=== PATIENT | female | born 1970 | race Caucasian/White ===

== ENCOUNTER 2023-02-08 08:13 | Emergency (ER) | payer MEDICARE, OTHER, MEDICAID, SELFPAY ==
--- NOTE | 2023-02-08 08:19 | ED_ITS ---
HPI - Abdominal Pain General: Chief Complaint: Abdominal Pain Stated Complaint: Abd Pain Time Seen by Provider: 02/08/23 08:14 History of Present Illness: Ms. Evans is a 52-year-old lady with significant past medical history of sarcoidosis presenting to the emergency department for abdominal pain. She notes symptoms over the past few months which has generally been intermittent and mild to moderate however is now been more severe in the moderate to severe range. She notes primarily left upper quadrant pain without significant radiation. She has nausea with the pain but no other GI symptoms. She is postmenopausal. She does report a history of sarcoidosis and took herself off medications due to adverse side effects from steroids and Imuran. No other specific changes in health, exacerbating, or alleviating factors identified. Unfortunately the patient has limited options with regards to analgesia. She reports a strong family history and personal history now of some degree of kidney dysfunction. She also reports fatty liver. She tries to avoid NSAIDs and Tylenol. She reports significant adverse effects of oversedation and prolonged sedated side effects of opioids. Onset (ago): month(s) Pain Consistency: intermittent Location: LUQ Severity: moderate Radiation: none Migration to: no migration Exacerbating factors: other (Palpation) Relieving factors: nothing Associated Symptoms: Reports nausea (When pain is bad) Review of Systems General: Reports: 10 or more systems reviewed and unremarkable except in HPI and below GI: Reports: nausea (When pain is bad) PFSH ED PFSH: Medical History Family history of kidney disease Sarcoidosis Social History Smoking and tobacco status: former smoker Physical Exam Const: COMMON NORMALS: alert GENERAL APPEARANCE: cooperative and well developed HENMT: COMMON NORMALS: normocephalic and atraumatic HEAD & SCALP: normocephalic and atraumatic Eye: COMMON NORMALS: conjunctivae normal CONJUNCTIVA: Yes conjunctivae normal SCLERA: sclerae normal Neck/C-Spine: COMMON NORMALS: supple GENERAL: Yes trachea midline Resp: COMMON NORMALS: clear to auscultation bilaterally EFFORT & INSPECTION: Yes able to speak in complete sentences AUSCULTATION: clear to auscultation bilaterally Cardio: COMMON NORMALS: regular rate and regular rhythm RATE: regular rate RHYTHM: regular rhythm GI: COMMON NORMALS: Soft to palpation PALPATION: Yes Soft to palpation, Yes Tenderness to palpation present (GI) Details: LUQ, No Guarding due to palpation present (GI) and No Rigid due to palpation Extremity: GENERAL: Yes normal exam except as noted and No edema Neuro: COMMON NORMALS: moves all extremities SENSORIUM/ORIENTATION: Yes alert and No Orientation impaired Psych: COMMON NORMALS: mental status grossly normal and Normal thought process present THOUGHT PROCESS: Normal thought process present Course Vital Signs: Vital signs: Vital Signs Temperature 98.2 F 02/08/23 08:37 Pulse Rate 72 02/08/23 08:37 Respiratory Rate 18 02/08/23 08:40 Blood Pressure 140/86 02/08/23 09:25 Pulse Oximetry 98 02/08/23 08:40 Oxygen Delivery Me thod Room Air 02/08/23 08:40 MDM - Abdominal Pain Medical Decision Making 52-year-old lady presenting to the emergency department for abdominal pain. Exam as above. She is nontoxic. She is abdominal tenderness without evidence of acute surgical abdomen. Labs notable for mild leukopenia, normal hemoglobin and platelet count. Metabolic panel without significant derangement. Negative hCG. No UTI. Mild evidence of dehydration CTA demonstrates hepatomegaly and splenomegaly, uterus appears bulky possible fibrosis, multiple nodules consistent with sarcoidosis. Incidental findings d iscussed with patient. Patient treated with GI cocktail with perhaps minimal relief. Exact etiology of patient's symptoms is unclear however does not appear to need hospitalization at this time. The results of ED evaluation were discussed with the patient including prescriptions and/or symptomatic cares (if applicable) including appropriate and responsible use, followup plan, and return precautions. The patient verbalized understanding and felt safe for discharge. Medical Records I reviewed the patient's medical records. Lab Data I reviewed the patient's lab results. 02/08/23 08:30 02/08/23 08:30 Labs/Radiology: Radiology Impressions Abdomen/Pelvis CT 02/08/23 09:04 IMPRESSION: 1. Mild hepatomegaly and splenomegaly. 2. No hydronephrosis in either kidney. Normal renal parenchymal enhancement. 3. Bulky uterus with bulky uterine mass most likely fibrois but indeterminant. This measures 6.1 x 4.2 cm. Recommend follow-up ultrasound evaluation. Compression of the endometrium. 4. Diffuse tiny low-attenuation nodules throughout the liver likely due to sarcoidosis involvement. Laboratory Results WBC 3.8 10^3/uL (4.0-10.0) L 02/08/23 08:30 RBC 4.57 10^6/uL (4.1-5.3) 02/08/23 08:30 Hgb 14.0 g/dL (11.5-15.3) 02/08/23 08:30 Hct 42.1 % (37.0-47.0) 02/08/23 08:30 MCV 92.1 fl (81-99) 02/08/23 08:30 MCH 30.6 pg (28.0-34.0) 02/08/23 08:30 MCHC 33.3 g/dL (30.0-36.0) 02/08/23 08:30 RDW 13.0 % (12.1-15.1) 02/08/23 08:30 Plt Count 182 10^3/cmm (130-400) 02/08/23 08:30 MPV 9.8 fL (7.4-10.4) 02/08/23 08:30 Neut % (Auto) 59.4 % 02/08/23 08:30 Lymph % (Auto) 18.4 % 02/08/23 08:30 [place] % (Auto) 13.6 % 02/08/23 08:30 Eos % (Auto) 7.5 % 02/08/23 08:30 Baso % (Auto) 0.8 % 02/08/23 08:30 Neut # (Auto) 2.23 10^3/uL (1.8-7.7) 02/08/23 08:30 Lymph # (Auto) 0.7 10^3/uL (0.8-4.8) L 02/08/23 08:30 [place] # (Auto) 0.5 10^3/uL (0.2-0.9) 02/08/23 08:30 Eos # (Auto) 0.3 10^3/uL (0.0-0.8) 02/08/23 08:30 Baso # (Auto) 0.0 10^3/uL (0.0-0.1) 02/08/23 08:30 Nucleated RBC % (auto) 0 % 02/08/23 08:30 Nucleated RBCs # 0.0 /100WBC 02/08/23 08:30 Sodium 137 mmol/L (136-145) 02/08/23 08:30 Potassium 4.3 mmol/L (3.5-5.1) 02/08/23 08:30 Chloride 104 mmol/L (98-107) 02/08/23 08:30 Carbon Dioxide 23 mmol/L (22-29) 02/08/23 08:30 Anion Gap 14.3 (5-19) 02/08/23 08:30 BUN 16 mg/dL (6-20) 02/08/23 08:30 Creatinine 0.6 mg/dL (0.5-0.9) 02/08/23 08:30 GFR Calculation 105.4 mL/min (90-130) 02/08/23 08:30 Glucose 96 mg/dL (65-115) 02/08/23 08:30 Calculated Osmolality 285 mOsm/kg (285-295) 02/08/23 08:30 Calcium 9.2 mg/dL (8.5-10.5) 02/08/23 08:30 Total Bilirubin 0.5 mg/dL (0.15-1.2) 02/08/23 08:30 AST 23 U/L (0-32) 02/08/23 08:30 ALT 29 U/L (0-33) 02/08/23 08:30 Alkaline Phosphatase 48 U/L (35-105) 02/08/23 08:30 Total Protein 7.4 g/dL (6.6-8.7) 02/08/23 08:30 Albumin 4.4 g/dL (3.5-5.2) 02/08/23 08:30 Globulin 3.0 g/dL (1.3-4.6) 02/08/23 08:30 Lipase 36 U/L (13-60) 02/08/23 08:30 HCG, Qual Negative (Negative) 02/08/23 08:30 Urine Color Yellow (Yellow) 02/08/23 08:30 Urine Appearance Clear (CLEAR) 02/08/23 08:30 Urine pH 5 (5-7) 02/08/23 08:30 Ur Specific [place] 1.025 (1.005-1.030) 02/08/23 08:30 Urine Protein Neg (Negative) 02/08/23 08:30 Urine Glucose (UA) Norm (Normal) 02/08/23 08:30 Urine Ketones 1+ (Negative) H 02/08/23 08:30 Urine Blood Neg (Negative) 02/08/23 08:30 Urine Nitrate Negative (Negative) 02/08/23 08:30 Urine Bilirubin Neg (Negative) 02/08/23 08:30 Urine Urobilinogen Norm mg/dL (Negative) 02/08/23 08:30 Ur Leukocyte Esterase Negative (Negative) 02/08/23 08:30 Discharge Plan Discharge Patient Disposition: Home Clinical Impression: Abdominal pain, Hepatomegaly, Splenomegaly, Leukopenia, Abnormal CT scan, pelvis, Pleural nodule Condition: Stable Prescriptions: No Action B Complex Tablet Extended Release 1 tab PO DAILY tramadol 50 mg tablet 50 mg PO Q8H PRN (Reason: Pain) Vitamin C 500 mg Tablet 250 mg PO DAILY hydroxyzine HCl 25 mg tablet 25 mg PO TID PRN (Reason: Anxiety) Vitamin D2 1,250 mcg (50,000 unit) capsule 1,250 mcg PO Q7D magnesium 200 mg Tablet 200 mg PO DAILY melatonin 10 mg Tablet 10 mg PO BEDTIME Discharge Orders: Discharge ED (Routine); Ordered 02/08/23 Ordered By: Sang Mcghee Discharge Diet: Advance as tolerated and Clear Liquid Discharge Activity: Increase activity as tolerated Patient Instructions: Abdominal Pain (ED) Activity Restrictions/Additional Instructions: Thank you for visiting the emergency department. You were seen and evaluated for abdominal pain. The exact cause your symptoms is unclear and does not appear to need hospitalization at this time. Please follow-up with your primary care provider and establish with a new subspecialist for your sarcoidosis. As discussed you do have abnormal appearance of the uterus identified on CT scan which requires outpatient follow-up with ultrasound. This can be arranged by your primary care provider. You may use [id number]-[id number] medications such as acetaminophen and ibuprofen for pain however please do not exceed the daily recommended dosage as listed on the packaging and please keep in mind that many namebrand medications contain the same active ingredients. Please avoid these medications if previously instructed to do so by another physician due to other underlying medical condition. While taking these medications please ensure that you are staying hydrated. For use of NSAIDs greater than 2 days I recommend PPI or H2 rasheed for gastric protection. Return to the emergency department for anything that you are concerned about and feel needs emergency department evaluation. Coding Level of Care Code ED Insulation Board Coater Operator for Amber Da Silva
[2023-02-08 08:37] VITALS: BP 162/86; PULSE 72; RESP 18; TEMP 36.8; O2SAT 99
[2023-02-08 08:40] VITALS: RESP 18; O2SAT 98
[2023-02-08 08:45] LABS: Add Urine Microscopic? NO; Charge for UA Resulting for Rev
[2023-02-08 08:48] LABS: Basophils % 0.8 %; Eosinophils # 0.3 10^3/uL (0.0-0.8); Eosinophils % 7.5 %; Hematocrit 42.1 % (37.0-47.0); Lymphocytes # 0.7 10^3/uL (0.8-4.8); Lymphocytes % 18.4 %; Mean Corpuscular HGB Conc 33.3 g/dL (30.0-36.0); Mean Corpuscular Hemoglobin 30.6 pg (28.0-34.0); Mean Corpuscular Volume 92.1 fl (81-99); Mean Platelet Volume 9.8 fL (7.4-10.4); Monocytes # 0.5 10^3/uL (0.2-0.9); Monocytes % 13.6 %; Neutrophils # 2.23 10^3/uL (1.8-7.7); Neutrophils % 59.4 %; Nucleated Red Blood Cells % 0 %; Platelet Count 182 10^3/cmm (130-400); Red Blood Count 4.57 10^6/uL (4.1-5.3); White Blood Count 3.8 10^3/uL (4.0-10.0)
[2023-02-08 09:02] LABS: Alanine Aminotransferase 29 U/L (0-33); Albumin Level 4.4 g/dL (3.5-5.2); Alkaline Phosphatase 48 U/L (35-105); Anion Gap 14.3 (5-19); Aspartate Amino Transferase 23 U/L (0-32); Bilirubin Urine Neg (Negative); Blood Urea Nitrogen 16 mg/dL (6-20); Blood Urine Neg (Negative); Calcium 9.2 mg/dL (8.5-10.5); Carbon Dioxide 23 mmol/L (22-29); Chloride 104 mmol/L (98-107); Glomerular Filtration Rate 105.4 mL/min (90-130); Glucose 96 mg/dL (65-115); Glucose Urine UA Norm (Normal); Ketones Urine 1+ (Negative); Leukocyte Esterase Urine Negative (Negative); Lipase 36 U/L (13-60); Nitrate Urine Negative (Negative); Osmolality Calculated 285 mOsm/kg (285-295); Potassium 4.3 mmol/L (3.5-5.1); Protein Urine Neg (Negative); Sodium 137 mmol/L (136-145); Specific Gravity, Urine 1.025 (1.005-1.030); Total Bilirubin 0.5 mg/dL (0.15-1.2); Total Protein 7.4 g/dL (6.6-8.7); Urine Appearance Clear (CLEAR); Urine Color Yellow (Yellow); Urobilinogen Urine Norm (Negative); pH Urine 5 (5-7)
--- NOTE | 2023-02-08 09:04 | CT_ITS ---
WS: [id number] CT ABDOMEN PELVIS TECHNIQUE: Contrast-enhanced CT of the abdomen and pelvis with coronal and sagittal reformatted image s. CLINICAL INFORMATION: LUQ pain COMPARISON: None. DLP: 1115.[address] scans at [facility] use at least one of these dose optimization techniques: automated e xposure control; mA and/or kV adjustment per patient size (includes targeted exams where dose is matc hed to clinical indication); or iterative reconstruction. FINDINGS: Slight bibasilar atelectasis. Small pleural nodule LEFT lower lobe measuring 7.5 mm. Mild diffuse fat ty infiltration liver. Mild hepatomegaly and splenomegaly. Gallbladder is contracted. Innumerable low -attenuation lesions in the liver likely related to sarcoidosis. Portal vein and splenic vein are pat ent. Normal GE junction. Adrenal glands are normal. Normal renal parenchymal enhancement. No hydronep hrosis. Normal caliber abdominal aorta. Celiac and SMA are patent. Tiny fat-containing umbilical hernia. Disc space narrowing L5-S1. Lobulated heterogeneous uterus with suspected fibroid. Retroverted uterus. S uspected fibroid measures 6.1 x 4.2 CM. Normal sigmoid colon. Normal appendix in the RIGHT lower quad rant. No evidence of appendicitis. CT/CT abdomen pelvis w con* [id number] IMPRESSION: 1. Mild hepatomegaly and splenomegaly. 2. No hydronephrosis in either kidney. Normal renal parenchymal enhancement. 3. Bulky uterus with bulky uterine mass most likely fibrois but indeterminant. This measures 6.1 x 4.2 cm. Recommend follow-up ultrasound evaluation. Glo addy of the endometrium. 4. Diffuse tiny low-attenuation nodules throughout the liver likely due to sa rcoidosis involvement.
[2023-02-08] MEDS: iohexol 350 mg/mL 500 mL Btl (per mL) IV (09:06)
[2023-02-08 09:25] VITALS: BP 140/86
[2023-02-08 09:42] LABS: HCG, Serum Qual Negative (Negative)
== END 2023-02-08 10:23 | disposition home or self-care (01) ==
PROVIDERS: Emergency Provider Emergency Medicine; PCP Family Medicine
DX: R16.0 Hepatomegaly, not elsewhere classified (principal); R16.1 Splenomegaly, not elsewhere classified; D72.819 Decreased white blood cell count, unspecified; J94.9 Pleural condition, unspecified; R93.89 Abnormal findings on diagnostic imaging of other specified body structures; Z87.891 Personal history of nicotine dependence
CPT/HCPCS: 74177; 80053; 81003; 83690; 84703; 85025; 99285; Q9967

== ENCOUNTER → 2023-05-15 16:40 | Outpatient (BNVA) | payer MEDICARE, MEDICAID, SELFPAY | PROVIDERS: PCP Family Medicine; Visit Provider Obstetrics & Gynecology | DX: Z12.4 Encounter for screening for malignant neoplasm of cervix (principal); N93.9 Abnormal uterine and vaginal bleeding, unspecified | CPT/HCPCS: 87624; 88305 ==

== ENCOUNTER 2023-07-18 06:50 | Outpatient (CLI) | payer MEDICARE, MEDICAID, SELFPAY ==
--- NOTE | 2023-07-18 07:34 | USCV_ITS ---
Payton Evans Age: 52 Gender: F : 1970 Exam Date: 07/18/2023 07:43 Ordering Phys: German Ivey Technologist: [place] [facility] [place]ication: chest pain BP: 130 / 80 HR: Rhythm: Sinus Technical Quality: Adequate MEASUREMENTS (Male / Female) Normal Values 2D ECHO LV Diastolic Diameter PLAX 4.2 cm 4.2 - 5.9 / 3.9 - 5.3 cm LV Systolic Diameter PLAX 3.1 cm IVS Diastolic Thickness 0.9 cm 0.6 - 1.0 / 0.6 - 0.9 cm IVS Systolic Thickness 1.4 cm LVPW Diastolic Thickness 1.0 cm 0.6 - 1.0 / 0.6 - 0.9 cm LVPW Systolic Thickness 1.3 cm LVOT Diameter 2.0 cm LV Ejection Fraction 2D Teich 37.0 % LV Ejection Fraction MOD 2C 70.0 % LV Ejection Fraction 2C AL 70.5 % LA Diameter 3.3 cm IVC Diameter 2.0 cm M-MODE Aortic Annulus Diameter 3.4 cm LA Ao Ratio MM 0.9 MV E Point Septal Separation 1.2 cm DOPPLER LVOT Peak Velocity 91.0 cm/s MV Area PHT 3.2 cm squared Mitral E to A Ratio 0.8 MV E' Velocity 37.5 cm/s Mitral E to MV E' Ratio 10.6 Mitral E to LV E' Lateral Ratio 9.6 Mitral E to LV E' Septal Ratio 11.9 TR Peak Velocity 143.7 cm/s TR Peak Gradient 8.3 mmHg RV Acceleration Time 0.1 s FINDINGS Left Ventricle Left ventricle is normal in size. LV systolic function is normal with EF 55 to 60%. No regional wall motion normalities are seen. Grade 1 diastolic dysfunction. Right Ventricle Normal in size and function Right Atrium Normal in size Left Atrium normal in size Mitral Valve Structurally normal mitral valve. Trace mitral regurgitation Aortic Valve Structurally normal aortic valve. No significant stenosis Tricuspid Valve Mild tricuspid regurgitation. Insufficient TR jet to evaluate RVSP. Pulmonic Valve Not well-visualized Pericardium Normal Aorta Normal in size IVC Appears to be normal CONCLUSIONS LV systolic function is normal with EF 55 to 60%. Grade 1 diastolic dysfunction. Trace mitral regurgitation Mild tricuspid regurgitation. No comparison studies are available Jas Babin MD (Electronically Signed) Final Date: 18 July 2023 14:09 S
== END 2023-07-18 06:51 | disposition home or self-care (01) ==
LOC: RAD 06:50
PROVIDERS: PCP Family Medicine; Visit Provider Nurse Practitioner Family
DX: R07.89 Other chest pain (principal); R06.02 Shortness of breath; D86.9 Sarcoidosis, unspecified; I07.1 Rheumatic tricuspid insufficiency
CPT/HCPCS: 93306

== ENCOUNTER → 2023-07-25 08:39 | Outpatient (BNVA) | payer MEDICARE, MEDICAID, SELFPAY | PROVIDERS: PCP Family Medicine; Visit Provider Internal Medicine Rheumatology | DX: M19.90 Unspecified osteoarthritis, unspecified site (principal); Z79.899 Other long term (current) drug therapy; D86.9 Sarcoidosis, unspecified; Z71.85 Encounter for immunization safety counseling | CPT/HCPCS: 99205 ==

== ENCOUNTER → 2023-09-26 09:59 | Outpatient (BNVA) | payer MEDICARE, MEDICAID, SELFPAY | PROVIDERS: PCP Family Medicine; Visit Provider Internal Medicine Rheumatology | DX: Z79.899 Other long term (current) drug therapy (principal); M19.90 Unspecified osteoarthritis, unspecified site | CPT/HCPCS: 80076; 82565; 85025; 86140 ==

== ENCOUNTER 2023-10-02 10:45 | Emergency (ER) | payer MEDICARE, MEDICAID, SELFPAY ==
[2023-10-02 10:54] VITALS: BP 145/87; PULSE 68; RESP 18; TEMP 36.4; O2SAT 100; BMI 44.5
--- NOTE | 2023-10-02 10:58 | XR_ITS ---
WS: [id number] Exam: XR chest 1V portable [id number] Date/Time of Exam: 10/02/2023 11:20 AM Reason For Exam: cp No priors. Findings: The lungs are clear and fully expanded. Costophrenic angles are sharp. No infiltrates. Bronchovascula r relief appears normal. Cardiac silhouette is unremarkable. Bony elements are intact. IMPRESSION: Unremarkable chest radiograph.
--- NOTE | 2023-10-02 10:58 | ECG_ITS ---
[facility] Test Date: 2023-10-02 Pat Name: Payton Evans Department: Room: Gender: Female Child Psychologist: : 1970 Requested By: Odin Yang Order Number: [id number] Kathryn MD: Tracie Gregory M.D. Measurements Intervals [place] Rate: 68 P: 51 MO: 163 QRS: 32 QRSD: 104 T: 37 QT: 373 QTc: 398 Interpretive Statements SINUS RHYTHM No previous ECG available for comparison Electronically Signed On 10-03-2023 10:06:54 BUSINESS PROPOSAL REP by Tracie Gregory M.D. [id number]
[2023-10-02 11:19] LABS: Basophils # 0.1 10^3/uL (0.0-0.1); Basophils % 0.9 %; Eosinophils # 0.1 10^3/uL (0.0-0.8); Eosinophils % 1.7 %; Hematocrit 41.5 % (36-47); Lymphocytes # 0.7 10^3/uL (0.8-4.8); Lymphocytes % 11.4 %; Mean Corpuscular HGB Conc 33.7 g/dL (30-55); Mean Corpuscular Hemoglobin 31.8 pg (27-33); Mean Corpuscular Volume 94.3 fl (85-98); Mean Platelet Volume 9.5 fL (7.4-10.4); Monocytes # 0.4 10^3/uL (0.2-0.9); Monocytes % 5.8 %; Neutrophils # 5.12 10^3/uL (1.8-7.7); Neutrophils % 79.6 %; Nucleated Red Blood Cells % 0 %; Platelet Count 212 10^3/cmm (157-399); Red Cell Distribution Width 14.8 % (12.1-15.1); White Blood Count 6.43 10^3/uL (3.29-11.43)
[2023-10-02 11:36] LABS: Troponin(5th) Baseline < 6 ng/L (0-10)
[2023-10-02 11:39] LABS: Alanine Aminotransferase 32 U/L (0-33); Albumin Level 4.5 g/dL (3.5-5.2); Alkaline Phosphatase 54 U/L (35-105); Anion Gap 14.2 (5-19); Aspartate Amino Transferase 17 U/L (0-32); Blood Urea Nitrogen 11 mg/dL (6-20); Calcium 9.6 mg/dL (8.5-10.5); Carbon Dioxide 27 mmol/L (22-29); Chloride 102 mmol/L (98-107); Globulin 2.6 g/dL (1.3-4.6); Glomerular Filtration Rate 88.2 mL/min (90-130); Glucose 103 mg/dL (65-115); Lipase 30 U/L (13-60); Osmolality Calculated 288 mOsm/kg (285-295); Potassium 4.2 mmol/L (3.5-5.1); Sodium 139 mmol/L (136-145); Total Bilirubin 0.4 mg/dL (0.15-1.2); Total Protein 7.1 g/dL (6.6-8.7)
[2023-10-02 13:42] LABS: Troponin 5 2HR Delta 0.00001 ABS# (0-10)
--- NOTE | 2023-10-02 13:50 | W.ED.CHESTPA ---
HPI - Chest Pain General: Chief Complaint: Chest Pain Stated Complaint: chest and abd pain Time Seen by Provider: 10/02/23 13:41 Source: patient Mode of arrival: ambulatory History of Present Illness: 52-year-old female presents emergency room complaining of abdominal pain. She has intermittently had this for a year. No hematochezia melena hematemesis or coffee-ground emesis does have some reflux disease she is on prednisone was held as well as hydroxychloroquine and methotrexate. She has been advised before to be on top resolved she had seen rheumatology earlier today and was having persistent pain and was directed to the emergency room has any dysuria urgency or frequency. She has not noticed any correlation with anything that exacerbates or relieves her symptoms. She refers her symptoms to the epigastric left upper quadrant area. She has a history of sarcoidosis she has in the past she has been told she had enlarged liver and spleen. MD complaint: chest pain Onset (ago): day(s) Timing of current episode: episodic Onset: during rest Pain location: epigastric Pain radiation: none Severity: moderate Quality: aching Relieving factors: nothing Exacerbating factors: nothing Associated symptoms: Reports abdominal pain and nausea; Deny diaphoresis, dyspnea, fever(s), leg edema, palpitations, sense of impending doom, syncope or vomiting Treatment prior to arrival: none Review of Systems Const: Denies: fever(s), chills or diaphoresis ENMT: Denies: throat pain, ear or mastoid pain, nasal discharge or nasal congestion Card: Denies: chest pain, palpitations or syncope Resp: Denies: dyspnea GI: Reports: abdominal pain and nausea; Denies: vomiting : Denies: dysuria, urinary frequency or urinary urgency Musc: Denies: neck pain or back pain Skin/Breast: Denies: rash PFSH ED PFSH: Medical History Chronic steroid use Immunization counseling High risk medication use Inflammatory arthritis Family history of kidney disease Sarcoidosis Family History Family/Other Breast cancer Father Colon cancer Hypertension Other Cancer Diabetes Heart disease Lupus (systemic lupus erythematosus) Rheumatoid arthritis Denies family history of Ovarian cancer Hyperlipidemia Uterine cancer Thyroid disease Stroke Social History (Reviewed 01/15/24 @ 17:26 by MICHAEL Arriaza Smoking and tobacco/nicotine status: former use of tobacco/nicotine Alcohol intake: current Alcohol intake frequency: holidays/special occasions only Physical Exam Const: GENERAL APPEARANCE: cooperative and comfortable ORIENTATION/CONSCIOUSNESS: Yes awake, Yes oriented to person, Yes oriented to place and Yes oriented to time HENMT: COMMON NORMALS: normocephalic, atraumatic, hearing grossly normal bilaterally, external ears normal, EAC's normal, TM's normal bilaterally and Normal nasal mucous membranes and turbinates present HEAD & SCALP: normocephalic and atraumatic NOSE: Normal nasal mucous membranes and turbinates present EXTERNAL EAR: Yes external ears normal EXTERNAL AUDITORY CANAL: EAC's normal TYMPANIC MEMBRANE: TM's normal bilaterally Eye: COMMON NORMALS: Equal, round and reactive pupils present, EOMs intact bilaterally, conjunctivae normal and no scleral icterus CONJUNCTIVA: Yes conjunctivae normal PUPIL: Yes Equal, round and reactive pupils present Neck/C-Spine: COMMON NORMALS: full ROM, no lymphadenopathy, supple and no JVD Lymph: LYMPHATIC: no lymphadenopathy noted and no lymphedema noted Resp: COMMON NORMALS: normal respiratory effort, No retractions, No use of accessory muscles and clear to auscultation bilaterally AUSCULTATION: clear to auscultation bilaterally Cardio: COMMON NORMALS: no JVD, regular rate, regular rhythm and No murmurs present (Cardio) RATE: regular rate RHYTHM: regular rhythm GI: COMMON NORMALS: No hepatosplenomegaly present PALPATION: Yes Tenderness to palpation present (GI) (Epigastric left upper quadrant), No Guarding due to palpation present (GI) and Yes No hepatosplenomegaly present Extremity: COMMON NORMALS: normal to inspection, capillary refill normal, no clubbing, cyanosis or edema, no calf tenderness and no pedal edema Neuro: SENSORIUM/ORIENTATION: Yes oriented to person, Yes oriented to place and Yes oriented to time Skin: COMMON NORMALS: no rashes or lesions noted GENERAL SKIN EXAM: no rashes or lesions noted Course Vital Signs: Vital signs: Vital Signs Temperature 97.6 F 10/02/23 10:54 Pulse Rate 68 10/02/23 10:54 Respiratory Rate 18 10/02/23 10:54 Blood Pressure 145/87 10/02/23 10:54 Pulse Oximetry 100 10/02/23 10:54 Oxygen Delivery Me thod Room Air 10/02/23 10:54 MDM - Chest Pain Medical Decision Making Labs and imaging reviewed no significant findings CT did not show hepatosplenomegaly no acute abdominal pathology. Hemoglobin normal platelets normal MPs urine shows mild vaginal contaminant but generally unremarkable. Patient discharged home Protonix 40 mg twice a day for 10 days then it once daily follow-up with his primary care and rheumatology Medical Records I reviewed the patient's medical records. Lab Data I reviewed the patient's lab results. 10/02/23 11:11 10/02/23 11:11 Laboratory Results WBC 6.43 10^3/uL (3.29-11.43) 10/02/23 11:11 RBC 4.40 10^6/uL (3.85-5.65) 10/02/23 11:11 Hgb 14.00 g/dL (11.27-16.99) 10/02/23 11:11 Hct 41.5 % (36-47) 10/02/23 11:11 MCV 94.3 fl (85-98) 10/02/23 11:11 MCH 31.8 pg (27-33) 10/02/23 11:11 MCHC 33.7 g/dL (30-55) 10/02/23 11:11 RDW 14.8 % (12.1-15.1) 10/02/23 11:11 Plt Count 212 10^3/cmm (157-399) 10/02/23 11:11 MPV 9.5 fL (7.4-10.4) 10/02/23 11:11 Neut % (Auto) 79.6 % 10/02/23 11:11 Lymph % (Auto) 11.4 % 10/02/23 11:11 [place] % (Auto) 5.8 % 10/02/23 11:11 Eos % (Auto) 1.7 % 10/02/23 11:11 Baso % (Auto) 0.9 % 10/02/23 11:11 Neut # (Auto) 5.12 10^3/uL (1.8-7.7) 10/02/23 11:11 Lymph # (Auto) 0.7 10^3/uL (0.8-4.8) L 10/02/23 11:11 [place] # (Auto) 0.4 10^3/uL (0.2-0.9) 10/02/23 11:11 Eos # (Auto) 0.1 10^3/uL (0.0-0.8) 10/02/23 11:11 Baso # (Auto) 0.1 10^3/uL (0.0-0.1) 10/02/23 11:11 Nucleated RBC % (auto) 0 % 10/02/23 11:11 Nucleated RBCs # 0.0 /100WBC 10/02/23 11:11 Sodium 139 mmol/L (136-145) 10/02/23 11:11 Potassium 4.2 mmol/L (3.5-5.1) 10/02/23 11:11 Chloride 102 mmol/L (98-107) 10/02/23 11:11 Carbon Dioxide 27 mmol/L (22-29) 10/02/23 11:11 Anion Gap 14.2 (5-19) 10/02/23 11:11 BUN 11 mg/dL (6-20) 10/02/23 11:11 Creatinine 0.7 mg/dL (0.5-0.9) 10/02/23 11:11 GFR Calculation 88.2 mL/min (90-130) L 10/02/23 11:11 Glucose 103 mg/dL (65-115) 10/02/23 11:11 Calculated Osmolality 288 mOsm/kg (285-295) 10/02/23 11:11 Calcium 9.6 mg/dL (8.5-10.5) 10/02/23 11:11 Total Bilirubin 0.4 mg/dL (0.15-1.2) 10/02/23 11:11 AST 17 U/L (0-32) 10/02/23 11:11 ALT 32 U/L (0-33) 10/02/23 11:11 Alkaline Phosphatase 54 U/L (35-105) 10/02/23 11:11 Troponin T Baseline < 6 ng/L (0-10) 10/02/23 11:11 Troponin T 120 Minute 6.00 ng/L (0-10) 10/02/23 13:11 Delta Troponin T [id number] ABS# (0-10) 10/02/23 13:11 Total Protein 7.1 g/dL (6.6-8.7) 10/02/23 11:11 Albumin 4.5 g/dL (3.5-5.2) 10/02/23 11:11 Globulin 2.6 g/dL (1.3-4.6) 10/02/23 11:11 Lipase 30 U/L (13-60) 10/02/23 11:11 Urine Color Yellow (Yellow) 10/02/23 14:54 Urine Appearance Clear (CLEAR) 10/02/23 14:54 Urine pH 6 (5-7) 10/02/23 14:54 Ur Specific [place] 1.005 (1.005-1.030) 10/02/23 14:54 Urine Protein Neg (Negative) 10/02/23 14:54 Urine Glucose (UA) Norm (Normal) 10/02/23 14:54 Urine Ketones Negative (Negative) 10/02/23 14:54 Urine Blood 2+ (Negative) H 10/02/23 14:54 Urine Nitrate Negative (Negative) 10/02/23 14:54 Urine Bilirubin Neg (Negative) 10/02/23 14:54 Urine Urobilinogen Norm mg/dL (Negative) 10/02/23 14:54 Ur Leukocyte Esterase 1+ (Negative) H 10/02/23 14:54 Urine RBC 0-4 /hpf (0-2) H 10/02/23 14:54 Urine WBC 0-4 /hpf (0-5) H 10/02/23 14:54 Ur Squamous Epith Cells 0-4 /hpf (0-5) H 10/02/23 14:54 Amorphous Sediment Not Reportable 10/02/23 14:54 Urine Bacteria Trace /hpf (NONE) 10/02/23 14:54 Urine Mucus None /hpf 10/02/23 14:54 All radiology interpretation(s) finalized by discharge Discharge Plan Discharge Patient Disposition: Home Clinical Impression: GERD (gastroesophageal reflux disease) Condition: Stable Prescriptions: New Protonix 40 mg tablet,delayed release (DR/EC) 40 mg PO BID Qty: 45 0RF Rx Instructions: twice daily for 14 days then once daily No Action prednisone 10 mg tablet 10 mg PO DAILY methotrexate sodium 25 mg/mL solution 25 mg SUBCUT .Q7days Qty: 10 1RF Rx Instructions: ON MONDAY folic acid 1 mg tablet 1 mg PO DAILY Qty: 90 3RF Rx Instructions: EXCEPT TUESDAYS WHEN TAKEING METHOTREXATE SHOT hydroxychloroquine 200 mg tablet 200 mg PO BID clobetasol 0.05 % cream 1 applic topical BID 14 Days Qty: 45 2RF (DME) Monoject TB Safety Syringe 1 mL 25 gauge x 5/8 syringe See Rx Instructions .ROUTE .MEDSUPPLY Qty: 50 1RF Rx Instructions: As directed tramadol 50 mg tablet 50 mg PO Q8H PRN (Reason: Pain) ergocalciferol (vitamin D2) [Vitamin D2] 1,250 mcg (50,000 unit) capsule 1,250 mcg PO Q7D Rx Instructions: ON MONDAY ropinirole 0.25 mg tablet 0.25 mg PO BEDTIME pantoprazole 40 mg tablet,delayed release (DR/EC) 40 mg PO QAM ibuprofen 600 mg tablet 600 mg PO Q12H PRN (Reason: Pain) Discharge Orders: Discharge ED (Routine); Ordered 10/02/23 Ordered By: Cornell Torres Referrals: Nia Pitt DO [Primary Care Provider] - Discharge Diet: As Directed Discharge Activity: Increase activity as tolerated Patient Instructions: Diet for Stomach Ulcers and Gastritis (ED), GERD (Gastroesophageal Reflux Disease) (ED), Opioid Safety, Pain Management Coding Level of Care Code ED Security Business Analyst for Amber Da Silva
--- NOTE | 2023-10-02 14:08 | CT_ITS ---
WS: [id number] CT ABDOMEN AND PELVIS WITH CONTRAST HISTORY: abd pain TECHNIQUE: Imaging performed of the abdomen and pelvis with IV contrast. Single phase imaging of the abdomen. Coronal and sagittal reformats are submitted. All CT scans at [facility] use at [address] one of these dose optimization techniques: automated exposure control; mA and/or kV adjustment per patient size (includes targeted exams where dose is matched to clinical indication); or iterative re construction. IV CONTRAST: Omnipaque 350; 100 mL IV. Oral contrast: No DLP: 1250.43 mGy.cm COMPARISON: 02/08/2023 Lower thorax: Tiny pulmonary micronodules at the lung bases. Heart is normal size. No hiatal hernia. Liver/biliary system: Normal size liver. A tiny hypoechoic nodule scattered throughout the liver as s een on the prior examination are not quite as apparent today. No mass. Gallbladder: Normal. No gallstones or wall thickening. No pericholecystic fluid. Pancreas: Normal size pancreas and pancreatic duct. No adjacent inflammation. Spleen: Normal size spleen. Granulomata. No mass. Adrenal glands: Normal. Right kidney: Normal. Left kidney: Normal. Aorta: Normal. Lymphadenopathy: None. Free fluid: None. GI tract: Unremarkable. Abdominal wall: Fat containing umbilical hernia. Pelvis: No free fluid or adenopathy within the pelvis. Bulky heterogeneous uterus. There is what appe ars to be an IUD present along the anterior most portion of the uterus. This is new since the prior s tudy. IUD is new since the prior CT. Bones: Unremarkable. IMPRESSION: 1. No acute abdominal or pelvic abnormalities. 2. Previously described scattered micronodules throughout the liver are not identified today. 3. No splenomegaly. 4. No adenopathy or ascites. 5. No GI tract obstruction. 6. IUD has been positioned since 02/08/2023.
[2023-10-02] MEDS: lidocaine 2% viscous 15 ML, aluminum-mag hydrox-simethicon 30 ML, sucralfate oral liq 1 GM PO (14:23)
--- NOTE | 2023-10-02 14:31 | PC.NURSE ---
NURSE ASSUMED CARE AT 1400
[2023-10-02] MEDS: iohexol 350 mg/mL 500 mL Btl (per mL) IV (14:35)
[2023-10-02 15:19] LABS: Add Urine Microscopic? YES; Bilirubin Urine Neg (Negative); Blood Urine 2+ (Negative); Glucose Urine UA Norm (Normal); Ketones Urine Negative (Negative); Leukocyte Esterase Urine 1+ (Negative); Nitrate Urine Negative (Negative); Protein Urine Neg (Negative); Specific Gravity, Urine 1.005 (1.005-1.030); Urine Appearance Clear (CLEAR); Urine Color Yellow (Yellow); Urobilinogen Urine Norm (Negative); pH Urine 6 (5-7)
[2023-10-02 15:27] LABS: Bacteria Urine TRACE /hpf; RBC Urine 0-4 /hpf (0-2); Squamous Epithelial Cell Urine 0-4 /hpf (0-5); WBC Urine 0-4 /hpf (0-5)
[2023-10-02 15:28] LABS: Add Urine Culture? No
--- NOTE | 2023-10-02 16:58 | ECG_ITS ---
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 Measurements Intervals Stanley Rate: 56 P: 62 AR: 174 QRS: 48 QRSD: 111 T: 41 QT: 419 QTc: 406 Interpretive Statements SINUS BRADYCARDIA MODERATE INTRAVENTRICULAR CONDUCTION DELAY [110+ ms QRS DURATION] Compared to ECG 10/02/2023 10:50:49 Intraventricular conduction delay now present Sinus rhythm no longer present Electronically Signed On 10-03-2023 19:40:27 CLAIMS DIRECTOR by Tracie Gregory M.D. [id number]
== END 2023-10-02 16:59 | disposition home or self-care (01) ==
PROVIDERS: Emergency Medicine; Emergency Provider Family Medicine; PCP Family Medicine
DX: K21.9 Gastro-esophageal reflux disease without esophagitis (principal); Z87.891 Personal history of nicotine dependence; R10.9 Unspecified abdominal pain; D86.9 Sarcoidosis, unspecified; I49.8 Other specified cardiac arrhythmias; R07.9 Chest pain, unspecified; K42.9 Umbilical hernia without obstruction or gangrene; M19.90 Unspecified osteoarthritis, unspecified site; I45.89 Other specified conduction disorders; Z79.899 Other long term (current) drug therapy; Z71.85 Encounter for immunization safety counseling
CPT/HCPCS: 36415; 71045; 74177; 80053; 81001; 83690; 84484; 85025; 93005; 99215; 99285; Q9967

== ENCOUNTER → 2023-10-30 10:41 | Outpatient (BNVA) | payer MEDICARE, MEDICAID, SELFPAY | PROVIDERS: PCP Family Medicine; Referring Provider Internal Medicine Rheumatology; Visit Provider Otolaryngology | DX: R04.0 Epistaxis (principal); D86.9 Sarcoidosis, unspecified; G47.33 Obstructive sleep apnea (adult) (pediatric); E66.9 Obesity, unspecified; Z68.41 Body mass index [BMI] 40.0-44.9, adult | CPT/HCPCS: 99203 ==

== ENCOUNTER → 2023-11-08 09:17 | Outpatient (BNVA) | payer MEDICARE, MEDICAID, SELFPAY | PROVIDERS: PCP Family Medicine; Referring Provider Internal Medicine Rheumatology; Visit Provider Internal Medicine Rheumatology | DX: Z11.1 Encounter for screening for respiratory tuberculosis | CPT/HCPCS: 86480 ==

== ENCOUNTER → 2024-01-25 13:47 | Outpatient (BNVA) | payer MEDICARE, MEDICAID, SELFPAY | PROVIDERS: PCP Family Medicine; Referring Provider Internal Medicine Rheumatology; Visit Provider Internal Medicine Rheumatology | DX: M19.90 Unspecified osteoarthritis, unspecified site (principal); Z79.899 Other long term (current) drug therapy; D86.9 Sarcoidosis, unspecified | CPT/HCPCS: 80076; 81003; 82565; 82570; 84156; 85025; 85651; 86021; 86036; 86140 ==

== ENCOUNTER → 2024-04-30 12:48 | Outpatient (BNVA) | payer MEDICARE, SELFPAY | PROVIDERS: PCP Family Medicine; Visit Provider Internal Medicine Rheumatology | DX: M19.90 Unspecified osteoarthritis, unspecified site (principal); D86.9 Sarcoidosis, unspecified; Z79.899 Other long term (current) drug therapy; Z71.85 Encounter for immunization safety counseling; Z11.1 Encounter for screening for respiratory tuberculosis; Z11.59 Encounter for screening for other viral diseases | CPT/HCPCS: 36415; 80076; 82565; 85025; 85651; 86140; 99214 ==

== ENCOUNTER → 2024-06-27 09:50 | Outpatient (BNVA) | payer MEDICARE, SELFPAY | PROVIDERS: PCP Family Medicine; Visit Provider Podiatrist Foot & Ankle Surgery | DX: M79.671 Pain in right foot (principal); M72.2 Plantar fascial fibromatosis | CPT/HCPCS: 20551; 73630; 99203; J1100; J3301 ==

== ENCOUNTER → 2024-10-24 14:51 | Outpatient (BNVA) | payer OTHER, SELFPAY | PROVIDERS: PCP Family Medicine; Visit Provider Internal Medicine Rheumatology | DX: Z79.899 Other long term (current) drug therapy (principal); D86.9 Sarcoidosis, unspecified | CPT/HCPCS: 36415; 80076; 82306; 82310; 82565; 85025; 85651; 86140 ==